=== PATIENT | male | born 1955 | race African-American/Black ===

== ENCOUNTER 2019-07-17 01:18 | Emergency (ER) | payer OTHER ==
[~2019-07-17] VITALS: Ht 172.7 cm; Wt 90.0 kg
[2019-07-17 02:31] LABS: BASOPHILS % 1.1 % (0.0-2.0); EOSINOPHILS % 2.1 % (0.0-5.0); HEMATOCRIT. 44.8 % (42.0-52.0); HEMOGLOBIN. 15.6 g/dL (14.0-18.0); LYMPHOCYTES % 37.9 % (20.0-50.0); MEAN CORPUSCULAR VOLUME 88.9 fL (80.0-94.0); MEAN PLATELET VOLUME 8.7 fl (7.4-10.4); MONOCYTES % 12.6 % (2.0-8.0); NEUTROPHILS % 46.3 % (40.0-76.0); PLATELET 191 x1000/uL (130-400); RED BLOOD CELL COUNT 5.04 mill/uL (4.7-6.1); RED CELL DISTRIBUTION WIDTH 14.6 % (11.6-14.6)
[2019-07-17 02:37] LABS: CHLORIDE 107 mEq/L (98-107)
[2019-07-17 04:26] VITALS: BP 136/82
[2019-07-17 04:39] LABS: CLARITY URINE CLEAR (CLEAR); COLOR URINE YELLOW (YELLOW); KETONES URINE NEGATIVE (NEGATIVE); LEUKOCYTE ESTERASE URINE NEGATIVE (NEGATIVE); NITRITE URINE NEGATIVE (NEGATIVE); OCCULT BLOOD URINE NEGATIVE (NEGATIVE); PH URINE 5.5 (4.5-8.0); PROTEIN URINE NEGATIVE (NEGATIVE); SPECIFIC GRAVITY URINE 1.017 (1.005-1.030); UROBILINOGEN URINE 0.2 E.U./dL (0.2-1.0)
== END 2019-07-17 04:27 | disposition home or self-care (01) ==
LOC: ER 01:18
DX: R07.89 Other chest pain (principal); R91.8 Other nonspecific abnormal finding of lung field; I10 Essential (primary) hypertension
CPT/HCPCS: 36415; 71045; 80053; 81003; 83880; 84484; 85025; 93005; 99285

== ENCOUNTER 2019-07-17 20:14 | Emergency (ER) | payer OTHER ==
[~2019-07-17] VITALS: Ht 172.7 cm; Wt 90.0 kg
[2019-07-17 20:36] VITALS: BP 139/77
[2019-07-17 21:29] LABS: BASOPHILS % 1.3 % (0.0-2.0); EOSINOPHILS % 2.4 % (0.0-5.0); HEMATOCRIT. 46.2 % (42.0-52.0); LYMPHOCYTES % 33.5 % (20.0-50.0); MEAN CORPUSCULAR HEMOGLOBIN 31.1 pg (28.0-32.0); MEAN CORPUSCULAR VOLUME 89.9 fL (80.0-94.0); MEAN PLATELET VOLUME 8.6 fl (7.4-10.4); MONOCYTES % 8.8 % (2.0-8.0); PLATELET 192 x1000/uL (130-400); RED BLOOD CELL COUNT 5.14 mill/uL (4.7-6.1); RED CELL DISTRIBUTION WIDTH 14.9 % (11.6-14.6)
[2019-07-17 21:32] LABS: CHLORIDE 107 mEq/L (98-107)
[2019-07-17] MEDS ORDERED: IOHEXOL-300 100 ML BOTTLE ONE (22:24)
== END 2019-07-17 23:39 | disposition home or self-care (01) ==
LOC: ER 20:24
DX: R91.8 Other nonspecific abnormal finding of lung field (principal)
CPT/HCPCS: 36415; 71260; 80048; 85025; 99285; Q9967; 99284